=== PATIENT | female | born 1980 | race Caucasian/White ===

== ENCOUNTER 2019-04-05 17:00 | Emergency (ER) | payer OTHER, SELFPAY ==
[2019-04-05 17:32] VITALS: BP 134/69; PULSE 95; RESP 16; TEMP 37.3; O2SAT 97; BMI 32.3
--- NOTE | 2019-04-05 17:39 | XR_ITS ---
WS: [id number] PORTABLE CHEST HISTORY: cough COMPARISON: 09/18/2018 Slightly decreased lung volumes. No pneumonia. Normal vasculature. No pleural effusion or pneumothora x. Cardiac size: Normal. Mediastinum/Aorta: Normal mediastinum. No osseous abnormality seen. XR/XR chest 1V portable [id number] IMPRESSION: Unremarkable portable chest.
--- NOTE | 2019-04-05 18:25 | PC.NURSE ---
Patient reports that she has had a cough and body aches for 3 days. Patient states when coughing she gets a bad headache.
[2019-04-05 18:30] LABS: Basophils # 0.1 10^3/uL (0.0-0.1); Basophils % 1.3 %; Eosinophils # 0.1 10^3/uL (0.0-0.8); Eosinophils % 2.1 %; Hematocrit 43.6 % (37.0-47.0); Lymphocytes # 1.1 10^3/uL (0.8-4.8); Lymphocytes % 17.9 %; Mean Corpuscular HGB Conc 32.1 g/dL (30.0-36.0); Mean Corpuscular Volume 90.5 fL (81-99); Mean Platelet Volume 11.5 fL (7.4-10.4); Monocytes # 0.7 10^3/uL (0.2-0.9); Monocytes % 11.4 %; Neutrophils # 4.1 10^3/uL (1.8-7.7); Neutrophils % 67.1 %; Nucleated Red Blood Cells % 0 %; Platelet Count 226 10^3/cmm (130-400); Red Blood Count 4.82 10^6/uL (4.1-5.3); Red Cell Distribution Width 12.5 % (12.1-15.1); White Blood Count 6.2 10^3/uL (4.0-10.0)
--- NOTE | 2019-04-05 18:33 | ED_ITS ---
HPI - General Adult General: Chief complaint: General Medical Stated complaint: Coughing/N Time Seen by Provider: 04/05/19 18:23 History of Present Illness: HPI narrative: Patient planes about cough and wheeze last few days. Just quit smoking. MD complaint: Cough Onset (ago): day(s) Associated symptoms: Reports cough and fevers/chills; Deny chest pain, dyspnea, headache(s), nausea, rash or vomiting Review of Systems Const: Reports: fever and chills; Denies: body aches Eyes: Denies: change in vision or blurry vision ENMT: Denies: throat pain or nasal congestion Card: Denies: chest pain or shortness of breath on exertion Resp: Reports: productive cough, wheezing and chest congestion; Denies: shortness of breath, non-productive cough or change in phlegm color GI: Denies: abdominal pain, nausea or vomiting Musc: Denies: extremity pain Skin/Breast: Denies: rash Neuro: Denies: headache Psych: Denies: anxiety or depression Harjinder/Lymph: Denies: easy bruising PFSH ED PFSH: Statuses (acute, chronic, etc) shown below reflect problem list status as previously entered and may not be historically accurate Social History Smoking and tobacco status: current every day smoker Physical Exam Const: COMMON NORMALS: no apparent distress, average body habitus and oriented x3 HENMT: COMMON NORMALS: normocephalic HEAD & SCALP: normal to inspection and normocephalic FACE & SINUS: normal facial exam Eye: COMMON NORMALS: conjunctivae normal GENERAL EYE: normal appearance of both eyes CONJUNCTIVA: Yes conjunctivae normal Neck/C-Spine: COMMON NORMALS: no JVD Chest: COMMONS NORMALS: inspection of chest normal Resp: COMMON NORMALS: normal respiratory effort AUSCULTATION: rhonchi and wheezes Cardio: COMMON NORMALS: no JVD, regular rate and regular rhythm RATE: regular rate RHYTHM: regular rhythm GI: COMMON NORMALS: normal to inspection, nondistended, normoactive bowel sounds Extremity: COMMON NORMALS: normal to inspection and full ROM Neuro: COMMON NORMALS: oriented x3 Course Vital Signs: Vital signs: Vital Signs Temperature 99.1 F 04/05/19 17:32 Pulse Rate 95 04/05/19 17:32 Respiratory Rate 16 04/05/19 17:32 Blood Pressure 134/69 04/05/19 17:32 Pulse Oximetry 97 04/05/19 17:32 Discharge Plan Discharge Patient Disposition: Home, Self-Care Clinical Impression: Bronchitis Condition: Stable Prescriptions: New methylprednisolone [Medrol (Placido)] 4 mg tablets,dose pack See Rx Instructions .ROUTE .COMPLEX Qty: 21 RF: 0 albuterol sulfate [ProAir HFA] 90 mcg/actuation HFA aerosol inhaler 2 inh INHALATION Q4H PRN (Reason: shortness of breath or wheezing) Qty: 18 RF: 0 azithromycin [Zithromax Z-Placido] 250 mg tablet See Rx Instructions .ROUTE .COMPLEX Qty: 6 RF: 0 Discharge Orders: Discharge Order (Routine); Ordered 04/05/19 Ordered By: Fernandez Serrano Referrals: Jama Holly MD [Family Provider] - Discharge Diet: Usual diet Discharge Activity: Increase activity as tolerated Patient Instructions: Acute Bronchitis (ED), How to Stop Smoking (ED) Activity Restrictions/Additional Instructions: Follow-up with medical provider as directed. Take medications as prescribed. Return to the ER are your medical provider if condition worsens. Read and understand discharge instructions. Coding Level of Care Code ED Chemistry Instructor for Rl Hernandez
[2019-04-05 18:48] LABS: Alanine Aminotransferase 23 U/L (0-33); Albumin Level 4.1 g/dL (3.5-5.2); Alkaline Phosphatase 87 IU/L (35-105); Anion Gap 14.7 (5-19); Aspartate Amino Transferase 26 U/L (0-32); Blood Urea Nitrogen 4 mg/dL (6-20); Calcium 9.6 mg/Dl (8.6-10.0); Carbon Dioxide 29 mmol/L (22-29); Chloride 100 mmol/L (98-107); Globulin 3.1 g/dL (1.3-4.6); Glomerular Filtration Rate 94.7 mL/min (90-130); Glucose 103 mg/dL (74-109); Potassium 3.7 mmol/L (3.5-5.1); Sodium 140 mmol/L (136-145); Total Bilirubin 0.2 mg/dL (0.15-1.2); Total Protein 7.2 g/dL (6.6-8.7)
[2019-04-05 18:53] VITALS: BP 114/85; PULSE 93; RESP 18; O2SAT 96
== END 2019-04-05 18:53 | disposition home or self-care (01) ==
PROVIDERS: Family Medicine; Emergency Provider Nurse Practitioner Family; Family Provider Family Medicine
DX: J40 Bronchitis, not specified as acute or chronic (principal); F17.210 Nicotine dependence, cigarettes, uncomplicated
CPT/HCPCS: 36415; 71045; 80053; 85025; 99281

== ENCOUNTER 2019-04-05 22:16 | Emergency (ER) | payer OTHER, SELFPAY ==
[2019-04-05 22:23] VITALS: BP 122/95; PULSE 86; RESP 18; TEMP 36.7; O2SAT 96; BMI 32.3
--- NOTE | 2019-04-05 23:01 | XR_ITS ---
WS: [id number] CHEST 2 VIEWS HISTORY: Chest pain, acute onset. COMPARISON: 04/05/2019 Lungs: Clear with no abnormality. No pleural effusion or pneumothorax. Cardiac size: Normal. Mediastinum/Aorta: Normal mediastinum. Bones: Normal. XR/XR chest 2V* [id number] IMPRESSION: Normal chest.
--- NOTE | 2019-04-06 02:42 | ECG_ITS ---
Measurements Intervals [place] Rate: 83 P: 56 MS: 143 QRS: 34 QRSD: 93 T: 32 QT: 352 QTc: [address] DEPRESSION [0.025+ mV ST DEPRESSION] Compared to ECG 09/18/2018 03:35:59 ST (T wave) deviation now present Sinus bradycardia no longer present Electronically Signed On 04-06-2019 13:28:41 [employer] by Rissa Taveras M.D. [email or web address]
--- NOTE | 2019-04-06 02:59 | ED_ITS ---
Entered by Suzanne Ordaz, acting as scribe for Mary Antunez MD Apr 05, 2019 22:16 HPI - SOB/Dyspnea General: Chief Complaint: Shortness of Breath/Dyspnea Stated Complaint: bronchitis diagnosed today/worse now Time Seen by Provider: 04/06/19 02:49 Source: patient Limitations: no limitations History of Present Illness: HPI Narrative: 38 yo m came to the er pov for shortness of breath. Onset was last night. Pt states that she was throwing up blood last night. Pt was seen in er yesterday and was diagnosed with bronchitis. PT states that she has also had a cough since last friday. MD elicited complaint: shortness of breath and cough Onset (ago): day(s) (today) Timing: constant Severity: mild Exacerbating factors: nothing Relieving factors: nothing Associated symptoms: Deny abdominal pain, chest pain, fever(s), polyuria or vomiting Treatment prior to arrival: none Review of Systems 2 Const: Denies: fever or chills Eyes: Denies: change in vision ENMT: Denies: throat pain or mouth pain Card: Denies: chest pain Resp: Reports: shortness of breath and productive cough GI: Denies: abdominal pain or vomiting : Denies: difficulty urinating Musc: Denies: back pain or joint pain Skin/Breast: Denies: rash Neuro: Denies: headache Psych: Denies: depression Endo: Denies: excessive urination Harjinder/Lymph: Denies: easy bruising All/Imm: Denies: hives PFSH ED PFSH: Statuses (acute, chronic, etc) shown below reflect problem list status as previously entered and may not be historically accurate Social History Smoking and tobacco status: never smoked Physical Exam Const: COMMON NORMALS: no apparent distress and healthy appearing HENMT: COMMON NORMALS: normocephalic and external nose normal HEAD & SCALP: normocephalic NOSE: external nose normal and no nasal discharge (nasal dischage) Eye: COMMON NORMALS: PERRL PUPIL: Yes PERRL Neck/C-Spine: COMMON NORMALS: full ROM and no lymphadenopathy Chest: COMMONS NORMALS: inspection of chest normal Resp: OTHER: wheexing bilaterally Cardio: COMMON NORMALS: regular rate and regular rhythm RATE: regular rate RHYTHM: regular rhythm GI: COMMON NORMALS: soft to palpation PALPATION: Yes soft Extremity: COMMON NORMALS: normal to inspection, full ROM and normal capillary refill Psych: COMMON NORMALS: mental status grossly normal and cooperative Skin: COMMON NORMALS: no rashes or lesions noted GENERAL SKIN EXAM: no rashes or lesions noted Course Vital Signs: Vital signs: Vital Signs Temperature 98.1 F 04/05/19 22:23 Pulse Rate 85 04/06/19 04:43 Respiratory Rate 16 04/06/19 04:43 Blood Pressure 120/74 04/06/19 04:43 Pulse Oximetry 96 04/06/19 04:43 MDM - SOB/Dyspnea MDM Narrative: Medical decision making narrative: Patient presents here with cough along with wheezing. Patient likely has bronchitis. X-ray here shows no pneumonia. She has no signs of pulmonary embolism and EKG and troponin are normal. Patient is to continue her inhaler and antibiotics. Patient given Solu-Medrol here. Patient also given breathing treatment here and is improved. She is to follow-up with her primary care doctor in 3 to 5 days and return if worsening. Lab Data: Labs: Lab Results 04/06/19 04/06/19 04/06/19 Range/Units 03:05 03:05 03:05 WBC 7.7 (4.0-10.0) 10^3/ uL RBC 4.55 (4.1-5.3) 10^6/u L Hgb 13.8 (11.5-15.3) g/dL Hct 41.9 (37.0-47.0) % MCV 92.1 (81-99) fL MCH 30.3 (28.0-34.0) pg MCHC 32.9 (30.0-36.0) g/dL RDW 12.6 (12.1-15.1) % Plt Count 208 (130-400) 10^3/c mm MPV 11.7 H (7.4-10.4) fL Neut % (Auto) 62.7 % Lymph % (Auto) 21.9 % [place] % (Auto) 11.1 % Eos % (Auto) 2.6 % Baso % (Auto) 1.4 % Neut # (Auto) 4.8 (1.8-7.7) 10^3/u L Lymph # (Auto) 1.7 (0.8-4.8) 10^3/u L [place] # (Auto) 0.9 (0.2-0.9) 10^3/u L Eos # (Auto) 0.2 (0.0-0.8) 10^3/u L Baso # (Auto) 0.1 (0.0-0.1) 10^3/u L Nucleated RBC % (a uto) 0 % Nucleated RBCs # 0.0 /100WBC Sodium 142 (136-145) mmol/L Potassium 3.4 L (3.5-5.1) mmol/L Chloride 104 (98-107) mmol/L Carbon Dioxide 27 (22-29) mmol/L Anion Gap 14.4 (5-19) BUN 5 L (6-20) mg/dL Creatinine 0.9 (0.5-0.9) mg/dL GFR Calculation 70.8 L (90-130) mL/min Glucose 98 (74-109) mg/dL Calcium 9.1 (8.6-10.0) mg/Dl Total Bilirubin 0.2 (0.15-1.2) mg/dL AST 24 (0-32) U/L ALT 19 (0-33) U/L Alkaline Phosphata se 82 (35-105) IU/L Troponin T Baselin e 6 (0-10) ng/mL Total Protein 6.6 (6.6-8.7) g/dL Albumin 4.2 (3.5-5.2) g/dL Globulin 2.4 (1.3-4.6) g/dL Imaging Data^: CXR: Attestation: I personally reviewed and interpreted this imaging study as follows: My impression: no acute abnormality EKG Data^: EKG 1: Attestation: I personally reviewed and interpreted this EKG as follows: EKG Interpretation Date: 04/06/19 EKG interpretation time: 03:00 Interpretation: nsr hr [address] or t wave abnormalities qrs 93 qtc 392 Discharge Plan Discharge Patient Disposition: Home, Self-Care Clinical Impression: Bronchitis Condition: Stable Prescriptions: No Action Zithromax Z-Placido 250 mg tablet See Rx Instructions .ROUTE .COMPLEX Qty: 6 RF: 0 Medrol (Placido) 4 mg tablets,dose pack See Rx Instructions .ROUTE .COMPLEX Qty: 21 RF: 0 ProAir HFA 90 mcg/actuation HFA aerosol inhaler 2 inh INHALATION Q4H PRN (Reason: shortness of breath or wheezing) Qty: 18 RF: 0 Discharge Orders: Discharge Order (Routine); Ordered 04/06/19 Ordered By: Mary Antunez Referrals: Jama Holly MD [Family Provider] - 4-7 days Discharge Diet: Advance as tolerated Discharge Activity: Resume usual activity Patient Instructions: Acute Bronchitis (ED) Discharge Date/Time: 04/06/19 04:44 Coding Level of Care Code ED Acute Care Clinical Nurse Specialist for Chg Fwd Exam Problem Focused The documentation recorded by the Orlin hood Stephanie Lyn, accurately reflects the service I personally performed and the decisions made by Tulio campbell Korby, MD Apr 05, 2019 22:16
[2019-04-06 03:19] VITALS: BP 114/73; PULSE 83; PULSE 87; RESP 17; O2SAT 94
[2019-04-06 03:31] LABS: Troponin(5th) Baseline 6 ng/mL (0-10)
[2019-04-06] MEDS: LORazepam 2 mg/mL INJ 1 mL 1 MG IVP (03:45)
[2019-04-06 03:50] LABS: Alanine Aminotransferase 19 U/L (0-33); Albumin Level 4.2 g/dL (3.5-5.2); Alkaline Phosphatase 82 IU/L (35-105); Anion Gap 14.4 (5-19); Aspartate Amino Transferase 24 U/L (0-32); Blood Urea Nitrogen 5 mg/dL (6-20); Calcium 9.1 mg/Dl (8.6-10.0); Carbon Dioxide 27 mmol/L (22-29); Chloride 104 mmol/L (98-107); Globulin 2.4 g/dL (1.3-4.6); Glomerular Filtration Rate 70.8 mL/min (90-130); Glucose 98 mg/dL (74-109); Potassium 3.4 mmol/L (3.5-5.1); Sodium 142 mmol/L (136-145); Total Bilirubin 0.2 mg/dL (0.15-1.2); Total Protein 6.6 g/dL (6.6-8.7)
[2019-04-06 03:58] LABS: Basophils # 0.1 10^3/uL (0.0-0.1); Basophils % 1.4 %; Eosinophils # 0.2 10^3/uL (0.0-0.8); Eosinophils % 2.6 %; Hematocrit 41.9 % (37.0-47.0); Hemoglobin 13.8 g/dL (11.5-15.3); Lymphocytes # 1.7 10^3/uL (0.8-4.8); Lymphocytes % 21.9 %; Mean Corpuscular HGB Conc 32.9 g/dL (30.0-36.0); Mean Corpuscular Hemoglobin 30.3 pg (28.0-34.0); Mean Corpuscular Volume 92.1 fL (81-99); Mean Platelet Volume 11.7 fL (7.4-10.4); Monocytes # 0.9 10^3/uL (0.2-0.9); Monocytes % 11.1 %; Neutrophils # 4.8 10^3/uL (1.8-7.7); Neutrophils % 62.7 %; Nucleated Red Blood Cells % 0 %; Platelet Count 208 10^3/cmm (130-400); Red Blood Count 4.55 10^6/uL (4.1-5.3); Red Cell Distribution Width 12.6 % (12.1-15.1); White Blood Count 7.7 10^3/uL (4.0-10.0)
[2019-04-06 04:43] VITALS: BP 120/74; PULSE 85; RESP 16; O2SAT 96
== END 2019-04-06 04:44 | disposition home or self-care (01) ==
PROVIDERS: Emergency Provider Emergency Medicine; Family Provider Family Medicine
DX: J40 Bronchitis, not specified as acute or chronic (principal)
CPT/HCPCS: 36415; 71046; 80053; 84484; 85025; 93005; 96374; 96375; 99281; J2060; J2930

== ENCOUNTER 2019-05-13 13:25 | Outpatient (CLI) | payer OTHER, SELFPAY ==
--- NOTE | 2019-05-13 13:35 | MR_ITS ---
WS: [id number] MRI RIGHT KNEE NONCONTRAST TECHNIQUE: Axial PD, coronal PD fat sat, coronal PD, sagittal PD, and sagittal PD fat-sat images obta ined. CLINICAL INFORMATION: RIGHT KNEE JOINT PAIN;SUSPECTED MENISCAL TEAR COMPARISON: None. FINDINGS: Normal anterior cruciate ligament. Normal posterior cruciate ligament. Distal quadriceps and patella tendons are intact. Hypertrophic patella. No acute appearing meniscal tears. Small amount of chronic intrasubstance signal abnormality in the p osterior horns bilaterally. 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 No subchondral edema. Normal medial and lateral patellar retinaculum. Normal popliteal fossa. Normal medial and lateral collateral ligaments. Normal bone marrow signal in the distal femoral condy les and tibial plateau. No other significant findings. MR/MR knee RT wo con* [id number] IMPRESSION: 1. Normal anterior and posterior cruciate ligaments. 2. No acute appearing meniscal tears. 3. 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 No subchondral edema. 4. Normal medial and lateral collateral ligaments.
== END 2019-05-13 13:26 | disposition home or self-care (01) ==
LOC: RADSHAW 13:33
PROVIDERS: Family Provider Family Medicine; PCP Nurse Practitioner Family; Visit Provider Nurse Practitioner Family
DX: M22.41 Chondromalacia patellae, right knee (principal); M25.561 Pain in right knee
CPT/HCPCS: 73721

== ENCOUNTER 2019-08-14 00:03 | Emergency (ER) | payer OTHER, SELFPAY ==
[2019-08-14 00:19] VITALS: BP 120/79; PULSE 90; RESP 16; TEMP 37.3; O2SAT 96; BMI 35.2
--- NOTE | 2019-08-14 00:20 | W.ED.ABDPA2 ---
HPI - Abdominal Pain General: Chief Complaint: Chest Pain Stated Complaint: upper abd pain Time Seen by Provider: 08/14/19 00:20 Source: patient Mode of arrival: ambulatory Limitations: no limitations History of Present Illness: HPI narrative: Patient comes in with left lateral anterior rib pain. Patient reports falling about 4 days ago when she tripped over some feed and landed on the bag of feed. Patient appears well. Patient appears in mild pain. Patient takes routine medication for anxiety and diclofenac as needed for carpal tunnel pain. Patient denies any other chronic medical problems. Review of Systems General: Reports: 10 or more systems reviewed and unremarkable except in HPI and below Musc: Reports: other (Left rib pain.) PFSH ED PFSH: Social History Smoking and tobacco status: current every day smoker Physical Exam Const: COMMON NORMALS: no acute distress and patient oriented x3 GENERAL APPEARANCE: cooperative HENMT: COMMON NORMALS: normocephalic, TM's normal bilaterally and Normal external nose present HEAD & SCALP: normal to inspection and normocephalic NOSE: Normal external nose present TYMPANIC MEMBRANE: TM's normal bilaterally MOUTH: Normal oral and palatal mucosa present THROAT: posterior oropharynx normal Eye: GENERAL EYE: appearance normal, both eyes and all related structures Neck/C-Spine: COMMON NORMALS: full ROM Lymph: LYMPHATIC: no lymphadenopathy noted Chest: CHEST: No crepitus and Yes tenderness (Left anterior rib.) Resp: COMMON NORMALS: normal respiratory effort EFFORT & INSPECTION: Yes able to speak in complete sentences Cardio: COMMON NORMALS: regular rate and regular rhythm RATE: regular rate RHYTHM: regular rhythm GI: COMMON NORMALS: non-tender : COMMON NORMALS: Yes no CVA tenderness BLADDER/KIDNEY EXAM: Yes no CVA tenderness Back/Pelvis: COMMON NORMALS: no CVA tenderness and thoracic and lumbar spine normal to inspection Extremity: COMMON NORMALS: normal to inspection Neuro: COMMON NORMALS: patient oriented x3 and moves all extremities Psych: COMMON NORMALS: mental status grossly normal and cooperative Skin: COMMON NORMALS: no rashes or lesions noted GENERAL SKIN EXAM: no rashes or lesions noted Course Vital Signs: Vital signs: Vital Signs Temperature 99.2 F 08/14/19 00:19 Pulse Rate 90 08/14/19 00:19 Respiratory Rate 16 08/14/19 00:19 Blood Pressure 120/79 08/14/19 00:19 Pulse Oximetry 96 08/14/19 00:19 MDM - Abdominal Pain MDM Narrative: Medical decision making narrative: Patient comes in today for complaints of left rib pain. On exam patient has tenderness on palpation to the rib area. No crepitus or flailing of the chest is noted. Vital signs are normal. Differential diagnosis includes fracture of the ribs, contusion, strain. X-ray was negative for any fractures or abnormality. Reviewed exam with patient with recommendations for treatment with Tylenol and ibuprofen for pain. Recommend follow-up with primary care for further treatment. Patient reported understanding. Discharge Plan Discharge Patient Disposition: Home, Self-Care Clinical Impression: Costalchondritis Condition: Stable Prescriptions: No Action Zithromax Z-Placido 250 mg tablet See Rx Instructions .ROUTE .COMPLEX Qty: 6 RF: 0 Medrol (Placido) 4 mg tablets,dose pack See Rx Instructions .ROUTE .COMPLEX Qty: 21 RF: 0 ProAir HFA 90 mcg/actuation HFA aerosol inhaler 2 inh INHALATION Q4H PRN (Reason: shortness of breath or wheezing) Qty: 18 RF: 0 Discharge Orders: Discharge Order (Routine); Ordered 08/14/19 Ordered By: Kevan Rico Referrals: Nella Garcia FNP [Primary Care Provider] - Discharge Diet: Usual diet Discharge Activity: Increase activity as tolerated Patient Instructions: Costochondritis (ED) Activity Restrictions/Additional Instructions: Drink plenty of water. Activity as tolerated. Use ice or heat to the area of pain. Return to the ER for increased shortness of breath or high fever. Follow-up with primary care in 1 week otherwise. Coding Level of Care Code ED Br[employer]ation Supervisor for Chg Fwd Exam Comprehensive
--- NOTE | 2019-08-14 00:25 | XRR_ITS ---
PROCEDURE INFORMATION: Exam: XR Left Ribs with PA Chest, 3 Views Exam date and time: 08/14/2019 12:31 AM Age: 39 years old Clinical indication: Chest wall pain and painful respiration; Patient HX: Fall four days ago. C/O worsening left rib pain with dyspnea; Additional info: Fall injury TECHNIQUE: Imaging protocol: XR Left ribs 3 views with PA chest. COMPARISON: CR XR chest 2V* [id number] 04/05/2019 11:13 PM FINDINGS: Lungs: Interval development of patchy left lower lobe atelectasis versus mild pneumonia. Pleural space: Interval development of a small left pleural effusion. Heart/Mediastinum: The cardiac silhouette is unremarkable. Mediastinal contours are unremarkable. Bones/joints: No acute fracture. XR/XR ribs LT mn 3V w CXR1V [id number] IMPRESSION: 1. Interval development of patchy left lower lobe atelectasis versus mild pneumonia. Recommend clinical correlation. Recommend followup chest x-ray to ensure resolution. 2. Interval development of a small left pleural effusion. 3. No acute fracture.
[2019-08-14] MEDS: ketorolac 10 mg Tablet PO (01:04)
[2019-08-14 01:11] VITALS: BP 130/55; PULSE 95; RESP 16; O2SAT 97
== END 2019-08-14 01:12 | disposition home or self-care (01) ==
PROVIDERS: Emergency Provider Nurse Practitioner Family; PCP Nurse Practitioner Family
DX: M94.0 Chondrocostal junction syndrome [Tietze] (principal); F17.210 Nicotine dependence, cigarettes, uncomplicated
CPT/HCPCS: 12345; 71101; 99281; 99283

== ENCOUNTER 2019-11-02 13:21 | Emergency (ER) | payer MEDICAID, SELFPAY ==
[2019-11-02 13:33] VITALS: BP 123/78; PULSE 70; RESP 16; TEMP 36.4; O2SAT 100; BMI 31.4
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
[2019-11-02 14:12] VITALS: RESP 18
[2019-11-02 14:15] LABS: Basophils # 0.2 10^3/uL (0.0-0.1); Basophils % 1.6 %; Eosinophils # 0.7 10^3/uL (0.0-0.8); Eosinophils % 6.8 %; Hematocrit 41.8 % (37.0-47.0); Hemoglobin 13.6 g/dL (11.5-15.3); Lymphocytes # 1.7 10^3/uL (0.8-4.8); Lymphocytes % 17.6 %; Mean Corpuscular HGB Conc 32.5 g/dL (30.0-36.0); Mean Corpuscular Hemoglobin 30.3 pg (28.0-34.0); Mean Corpuscular Volume 93.1 fL (81-99); Mean Platelet Volume 11.6 fL (7.4-10.4); Monocytes # 0.5 10^3/uL (0.2-0.9); Monocytes % 5.5 %; Neutrophils # 6.69 10^3/uL (1.8-7.7); Neutrophils % 68.2 %; Nucleated Red Blood Cells % 0 %; Platelet Count 220 10^3/cmm (130-400); Red Blood Count 4.49 10^6/uL (4.1-5.3); Red Cell Distribution Width 13.2 % (12.1-15.1); White Blood Count 9.8 10^3/uL (4.0-10.0)
[2019-11-02 14:23] LABS: HCG, Serum Qual Positive (Negative)
[2019-11-02 14:23] LABS: Add Urine Microscopic? YES; Bilirubin Urine Neg (NEGATIVE); Blood Urine 2+ (Negative); Glucose Urine UA Norm (Normal); Ketones Urine Negative (Negative); Leukocyte Esterase Urine Negative (Negative); Nitrate Urine Negative (Negative); Protein Urine Neg (Negative); Specific Gravity, Urine 1.005 (1.005-1.030); Urine Appearance Clear (CLEAR); Urine Color Straw (Yellow); Urobilinogen Urine Norm (Negative); pH Urine 5 (5-7)
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
[2019-11-02 14:25] LABS: Alanine Aminotransferase 17 U/L (0-33); Albumin Level 3.5 g/dL (3.5-5.2); Alkaline Phosphatase 74 IU/L (35-105); Anion Gap 10.7 (5-19); Aspartate Amino Transferase 21 U/L (0-32); Blood Urea Nitrogen 7 mg/dL (6-20); Calcium 8.3 mg/dL (8.5-10.5); Carbon Dioxide 27 mmol/L (22-29); Chloride 104 mmol/L (98-107); Glomerular Filtration Rate 94.2 mL/min (90-130); Glucose 85 mg/dL (65-115); Osmolality Calculated 281 mOsm/kg (285-295); Potassium 3.7 mmol/L (3.5-5.1); Sodium 138 mmol/L (136-145); Total Bilirubin 0.2 mg/dL (0.15-1.2); Total Protein 6.5 g/dL (6.6-8.7)
[2019-11-02 14:32] LABS: Add Urine Culture? No; Bacteria Urine TRACE; RBC Urine 0-4 /hpf (0-2); Squamous Epithelial Cell Urine 0-4 (0-5); WBC Urine 0-4 /hpf (0-5)
[2019-11-02] MEDS: HYDROcodone-acetaminophen 7.5-325 mg Tablet 1 TAB PO (14:33)
[2019-11-02 15:12] VITALS: RESP 18
[2019-11-02 16:00] VITALS: RESP 18
== END 2019-11-02 16:56 | disposition home or self-care (01) ==
PROVIDERS: Emergency Provider Physician Assistant; PCP Nurse Practitioner Family
DX: O41.8X10 Other specified disorders of amniotic fluid and membranes, first trimester, not applicable or unspecified (principal); Z3A.08 8 weeks gestation of pregnancy; F17.210 Nicotine dependence, cigarettes, uncomplicated
CPT/HCPCS: 12345; 36415; 76801; 76817; 76830; 76856; 80053; 81001; 84702; 84703; 85025; 99281; 99283

== ENCOUNTER → 2019-11-09 09:24 | Outpatient (BNVA) | payer MEDICAID, SELFPAY | PROVIDERS: PCP Nurse Practitioner Family; Visit Provider Nurse Practitioner Women's Health | DX: O09.521 Supervision of elderly multigravida, first trimester (principal); O41.8X10 Other specified disorders of amniotic fluid and membranes, first trimester, not applicable or unspecified; O46.8X1 Other antepartum hemorrhage, first trimester; O99.331 Smoking (tobacco) complicating pregnancy, first trimester; Z81.8 Family history of other mental and behavioral disorders | CPT/HCPCS: 81000 ==

== ENCOUNTER 2019-11-23 21:56 | Emergency (ER) | payer MEDICAID, SELFPAY ==
[2019-11-23 22:00] VITALS: BP 116/77; PULSE 78; RESP 16; TEMP 36.6; O2SAT 98
--- NOTE | 2019-11-23 22:21 | W.ED.ABDPA2 ---
HPI - Abdominal Pain General: Chief Complaint: Abdominal Pain Stated Complaint: 14 wks preg,abd pain Time Seen by Provider: 11/23/19 22:19 History of Present Illness: HPI narrative: Patient is a 39-year-old female that is at 14 weeks gestation and comes to the ED with abdominal pain. Patient says abdominal pain started couple days ago. She describes it as some mild cramping. Patient had vaginal bleeding in the first trimester but it has since resolved over the past couple weeks. Patient also describes having some nausea as well. Denies any fever, vaginal bleeding, vaginal discharge. Patient does not want any pain meds. Associated Symptoms: Denies chills, constipation, diarrhea, dysuria, fever(s), hematochezia, hematuria, nausea and vomiting Related Data: Date of Last Menstrual Period: 08/07/19 Review of Systems Const: Denies: fever(s), chills or fatigue Eyes: Denies: change in vision or eye discomfort ENMT: Denies: throat pain, odynophagia, nasal discharge or nasal congestion Card: Denies: chest pain, palpitations, edema, swelling of feet/ankles, dyspnea on exertion or orthopnea Resp: Denies: dyspnea, productive cough or non-productive cough GI: Reports: abdominal pain; Denies: nausea, vomiting, diarrhea, constipation or hematochezia : Denies: flank pain, dysuria or hematuria Musc: Denies: neck pain, back pain or extremity swelling Skin/Breast: Denies: rash or new lesions Neuro: Denies: headache(s), numbness in extremities or weakness in extremities PFS ED PFSH: Medical History Anxiety No pertinent past medical history neghx: htn,dm,thyroid,dvt/pe, genital herpes Denies partner history of herpes Surgical History H/O removal of cyst (~2012) Vaginal cyst Family History Mother Diabetes Hypertension Hyperlipidemia Denies family history of Colon cancer Ovarian cancer Heart disease Breast cancer Family history of thyroid problem Uterine cancer Stroke Social History Smoking and tobacco status: current some day smoker Alcohol intake: never Additional social history: Tobacco use: Current everyday smoker-- was 1ppd;has now stopped 11/09/2019 Alcohol use: Denies Drug use: Denies Female Reproductive History: Date of last menstrual period: 08/07/19 Physical Exam Const: COMMON NORMALS: no acute distress, patient oriented x3, healthy appearing and alert GENERAL APPEARANCE: cooperative and comfortable HENMT: COMMON NORMALS: normocephalic HEAD & SCALP: normocephalic MOUTH: Normal oral and palatal mucosa present THROAT: posterior oropharynx normal and uvula midline Neck/C-Spine: COMMON NORMALS: supple GENERAL: Yes normal visual inspection Resp: COMMON NORMALS: normal respiratory effort, No retractions, No use of accessory muscles and clear to auscultation bilaterally AUSCULTATION: clear to auscultation bilaterally Cardio: COMMON NORMALS: regular rate, regular rhythm, S1 normal heart sound present, S2 normal heart sound present, No gallops present (Cardio), No clicks present (Cardio), No murmurs present (Cardio) and Peripheral pulses 2+ throughout RATE: regular rate RHYTHM: regular rhythm HEART SOUNDS: S1 normal heart sound present and S2 normal heart sound present PERIPHERAL PULSES: Peripheral pulses 2+ throughout GI: COMMON NORMALS: Normal to inspection, nondistended, normoactive bowel sounds present, Soft to palpation and no masses INSPECTION: Yes gravid abdomen PALPATION: Yes Soft to palpation and Yes Tenderness to palpation present (GI) Details: other (Mild tenderness below pelvic region.) : COMMON NORMALS: Yes no CVA tenderness BLADDER/KIDNEY EXAM: Yes no CVA tenderness Back/Pelvis: COMMON NORMALS: no CVA tenderness Extremity: COMMON NORMALS: normal to inspection Neuro: COMMON NORMALS: patient oriented x3 SENSORIUM/ORIENTATION: Yes alert GAIT: Yes Normal gait present Skin: COMMON NORMALS: no rashes or lesions noted GENERAL SKIN EXAM: no rashes or lesions noted and dry skin Course ED course: heart tones were assessed with Doppler and I was only able to briefly find a heart rate of 110 bpm. Reevaluation(s): Reevaluation #1: Dr. Antunez performed bedside ultrasound on patient. He saw a normal intrauterine and the heart rate was 146. Vital Signs: Vital signs: Vital Signs Temperature 97.8 F 11/23/19 22:00 Pulse Rate 64 11/24/19 00:15 Respiratory Rate 14 11/24/19 00:15 Blood Pressure 100/54 11/24/19 00:15 Pulse Oximetry 97 11/24/19 00:15 MDM - Abdominal Pain MDM Narrative: Medical decision making narrative: Patient is a 39-year-old female who is 14 weeks gestation and comes to the ED with abdominal pain. No vaginal bleeding or discharge. CBC, CMP and UA were unremarkable. Bedside ultrasound was performed by Dr. Antunez and an intrauterine was identified with a heart rate of 146. Patient was told to follow-up with her OB doctor in the next 7 to 10 days for reevaluation. Patient understood and agreed with plan. Lab Data: Attestation: I reviewed the patient's lab results. Labs: Lab Results 11/23/19 11/23/19 11/23/19 Range/Units 22:51 22:51 22:56 WBC 10.0 (4.0-10.0) 10^3/ uL RBC 4.45 (4.1-5.3) 10^6/u L Hgb 13.3 (11.5-15.3) g/dL Hct 40.0 (37.0-47.0) % MCV 89.9 (81-99) fL MCH 29.9 (28.0-34.0) pg MCHC 33.3 (30.0-36.0) g/dL RDW 13.2 (12.1-15.1) % Plt Count 236 (130-400) 10^3/c mm MPV 11.8 H (7.4-10.4) fL Neut % (Auto) 72.4 % Lymph % (Auto) 15.6 % [place] % (Auto) 5.8 % Eos % (Auto) 4.9 % Baso % (Auto) 1.1 % Neut # (Auto) 7.25 (1.8-7.7) 10^3/u L Lymph # (Auto) 1.6 (0.8-4.8) 10^3/u L [place] # (Auto) 0.6 (0.2-0.9) 10^3/u L Eos # (Auto) 0.5 (0.0-0.8) 10^3/u L Baso # (Auto) 0.1 (0.0-0.1) 10^3/u L Nucleated RBC % (a uto) 0 % Nucleated RBCs # 0.0 /100WBC Sodium 138 (136-145) mmol/L Potassium 3.4 L (3.5-5.1) mmol/L Chloride 105 (98-107) mmol/L Carbon Dioxide 19 L (22-29) mmol/L Anion Gap 17.4 (5-19) BUN 6 (6-20) mg/dL Creatinine 0.5 (0.5-0.9) mg/dL GFR Calculation 138.8 H (90-130) mL/min Glucose 98 (65-115) mg/dL Calculated Osmolal ity 282 L (285-295) mOsm/k g Calcium 8.5 (8.5-10.5) mg/dL Total Bilirubin 0.2 (0.15-1.2) mg/dL AST 14 (0-32) U/L ALT 11 (0-33) U/L Alkaline Phosphata se 64 (35-105) IU/L Total Protein 6.6 (6.6-8.7) g/dL Albumin 3.7 (3.5-5.2) g/dL Globulin 2.9 (1.3-4.6) g/dL Urine Color Yellow (Yellow) Urine Appearance Clear (CLEAR) Urine pH 6 (5-7) Ur Specific Gravit y 1.015 (1.005-1.030) Urine Protein Neg (Negative) Urine Glucose (UA) Norm (Normal) Urine Ketones Negative (Negative) Urine Blood Neg (Negative) Urine Nitrate Negative (Negative) Urine Bilirubin Neg (NEGATIVE) Urine Urobilinogen Norm (Negative) mg/dL Ur Leukocyte Yany ase Negative (Negative) Urine RBC None (0-2) /hpf Urine WBC None (0-5) /hpf Ur Squamous Epith Cells None (0-5) Amorphous Sediment Not Reportable Urine Bacteria None (NONE) Discharge Plan Discharge Patient Disposition: Home Clinical Impression: Pain of round ligament during Condition: Stable Prescriptions: No Action Multiple Vitamin, Womens Tablet 1 tab PO DAILY RF: 0 Discharge Orders: Discharge Order (Routine); Ordered 11/23/19 Ordered By: Bernard Bui Referrals: Nella Garcia FNP [Primary Care Provider] - Discharge Diet: Regular Discharge Activity: Increase activity as tolerated Activity Restrictions/Additional Instructions: Follow-up with medical provider as directed at next OB appointment. Take Tylenol for any pain. Drink plenty of fluids and stay hydrated. Return to the ER or your medical provider if condition worsens. Please read and understand discharge instructions. If any questions, please ask. Discharge Date/Time: 11/24/19 00:18 Coding Level of Care Code ED Hand Stoner for Rl Fwteo Exam Comprehensive
[2019-11-23] MEDS: ondansetron 2 mg/ML SDV 2 mL 4 MG IVP (23:02)
[2019-11-23] MEDS: sodium chloride 0.9% 1,000 ML 999 ML IV (23:03)
[2019-11-23 23:06] LABS: Basophils # 0.1 10^3/uL (0.0-0.1); Basophils % 1.1 %; Eosinophils # 0.5 10^3/uL (0.0-0.8); Eosinophils % 4.9 %; Hemoglobin 13.3 g/dL (11.5-15.3); Lymphocytes # 1.6 10^3/uL (0.8-4.8); Lymphocytes % 15.6 %; Mean Corpuscular HGB Conc 33.3 g/dL (30.0-36.0); Mean Corpuscular Hemoglobin 29.9 pg (28.0-34.0); Mean Corpuscular Volume 89.9 fL (81-99); Mean Platelet Volume 11.8 fL (7.4-10.4); Monocytes # 0.6 10^3/uL (0.2-0.9); Monocytes % 5.8 %; Neutrophils # 7.25 10^3/uL (1.8-7.7); Neutrophils % 72.4 %; Nucleated Red Blood Cells % 0 %; Platelet Count 236 10^3/cmm (130-400); Red Blood Count 4.45 10^6/uL (4.1-5.3); Red Cell Distribution Width 13.2 % (12.1-15.1)
[2019-11-23 23:24] LABS: Alanine Aminotransferase 11 U/L (0-33); Albumin Level 3.7 g/dL (3.5-5.2); Alkaline Phosphatase 64 IU/L (35-105); Anion Gap 17.4 (5-19); Aspartate Amino Transferase 14 U/L (0-32); Blood Urea Nitrogen 6 mg/dL (6-20); Calcium 8.5 mg/dL (8.5-10.5); Carbon Dioxide 19 mmol/L (22-29); Chloride 105 mmol/L (98-107); Globulin 2.9 g/dL (1.3-4.6); Glomerular Filtration Rate 138.8 mL/min (90-130); Glucose 98 mg/dL (65-115); Osmolality Calculated 282 mOsm/kg (285-295); Potassium 3.4 mmol/L (3.5-5.1); Sodium 138 mmol/L (136-145); Total Bilirubin 0.2 mg/dL (0.15-1.2); Total Protein 6.6 g/dL (6.6-8.7)
[2019-11-23 23:43] VITALS: BP 111/93; PULSE 77; RESP 18; O2SAT 99
[2019-11-23 23:50] LABS: Bilirubin Urine Neg (NEGATIVE); Blood Urine Neg (Negative); Glucose Urine UA Norm (Normal); Ketones Urine Negative (Negative); Leukocyte Esterase Urine Negative (Negative); Nitrate Urine Negative (Negative); Protein Urine Neg (Negative); Specific Gravity, Urine 1.015 (1.005-1.030); Urine Appearance Clear (CLEAR); Urine Color Yellow (Yellow); Urobilinogen Urine Norm (Negative); pH Urine 6 (5-7)
[2019-11-24 00:15] VITALS: BP 100/54; PULSE 64; RESP 14; O2SAT 97
== END 2019-11-24 00:18 | disposition home or self-care (01) ==
PROVIDERS: Emergency Provider Physician Assistant; PCP Nurse Practitioner Family
DX: O26.892 Other specified pregnancy related conditions, second trimester (principal); Z3A.14 14 weeks gestation of pregnancy; R10.2 Pelvic and perineal pain; O99.332 Smoking (tobacco) complicating pregnancy, second trimester; F17.210 Nicotine dependence, cigarettes, uncomplicated
CPT/HCPCS: 12345; 80053; 81001; 85025; 96361; 96374; 96375; 99282; 99283; J2405; J7030

== ENCOUNTER → 2019-12-07 11:44 | Outpatient (BNVA) | payer MEDICAID, SELFPAY | PROVIDERS: PCP Nurse Practitioner Family; Visit Provider Obstetrics & Gynecology | DX: O99.210 Obesity complicating pregnancy, unspecified trimester (principal) | CPT/HCPCS: 80053; 80307; 81000; 82950; 85027; 86592; 86762; 86803; 86850; 86900; 87340 ==

== ENCOUNTER → 2019-12-22 14:43 | Outpatient (BNVA) | payer MEDICAID, SELFPAY | PROVIDERS: PCP Nurse Practitioner Family; Visit Provider Nurse Practitioner Women's Health | DX: O09.521 Supervision of elderly multigravida, first trimester (principal); O99.340 Other mental disorders complicating pregnancy, unspecified trimester; F41.9 Anxiety disorder, unspecified; O99.331 Smoking (tobacco) complicating pregnancy, first trimester; F17.210 Nicotine dependence, cigarettes, uncomplicated; Z3A.08 8 weeks gestation of pregnancy | CPT/HCPCS: 81000; 87491; 87591; 88175 ==